=== PATIENT | female | born 1950 | race Caucasian/White ===

== ENCOUNTER 2025-04-02 15:22 | Emergency (ER) | payer MEDICARE, BC ==
[~2025-04-02] VITALS: Ht 149.9 cm; Wt 47.2 kg
[2025-04-02 15:56] LABS: BASOPHILS % (AUTO) 0.6 % (0-1); EOSINOPHILS % (AUTO) 0.5 % (0-6); HEMATOCRIT 40.4 % (35.0-45.0); HEMOGLOBIN 13.8 g/dl (12.0-16.0); LYMPHOCYTES # (AUTO) 1.2 X10'3 (1.1-4.8); MEAN CORPUSCULAR HEMOGLOBIN 29.5 PG (27.0-31.0); MEAN CORPUSCULAR HGB CONC 34.1 g/dL (33.0-36.5); MEAN CORPUSCULAR VOLUME 86.3 FL (78-98); MEAN PLATELET VOLUME 7.9 FL (7.4-10.4); MONOCYTES # (AUTO) 0.4 X10'3 (0-0.9); NEUTROPHILS # (AUTO) 4.7 X10'3 (1.8-7.7); NEUTROPHILS % (AUTO) 73.9 % (42-75); PLATELET COUNT 266 X10'3 (140-440); RED BLOOD COUNT 4.68 X10'6 (4.20-5.60); RED CELL DISTRIBUTION WIDTH 13.4 % (11.5-14.5); WHITE BLOOD COUNT 6.3 X10'3 (4.5-11.0)
[2025-04-02 16:06] LABS: ANION GAP 8 (8-16); BLOOD UREA NITROGEN 15 MG/DL (7-18); BUN/CREATININE RATIO 20.3 (10.0-20.0); CALCIUM 9.2 MG/DL (8.5-10.1); CHLORIDE 103 MMOL/L (99-107); CREATININE 0.74 MG/DL (0.40-0.90); GLUCOSE 134 MG/DL (70-104); POTASSIUM 4.3 MMOL/L (3.5-5.1); SODIUM 137 MMOL/L (135-145); TOTAL CARBON DIOXIDE 26.5 MMOL/L (24-32); eCRCL 47 ML/MIN; eGFR 77 ML/MIN
--- NOTE | 2025-04-02 16:10 | ELECTROCARDIOGRAPH REPORT ---
[facility] Test Date: 2025-04-02 Test Time: 16:08:19 Pat Name: JC CROOKS Department: EMERGENCY ROOM Room: Gender: F Administration Internship: YASMINE : 1950 Requested By: JESS GUEVARA Order Number: [id number] Reading MD: Dr. Alpesh Soto Measurements Intervals Bolt Rate: 66 P: 0 AR: 0 QRS: 77 QRSD: 98 T: 62 QT: 389 QTc: 408 Interpretive Statements Pacemaker spikes or artifacts Atrial flutter Electronically Signed On 04-04-2025 11:02:[address] Alpesh Soto Please click the below link to view image of tracing.
[2025-04-02 16:11] LABS: APTT 30 SECONDS (22-32); INR 1.1 INR; PROTHROMBIN TIME 11.3 SECONDS (9.0-12.0)
--- NOTE | 2025-04-02 16:23 | RADIOLOGY REPORT ---
EXAM: CT CT STROKE ALERT HISTORY: Stroke Alert COMPARISON: None TECHNIQUE: Axial images were obtained and reformatted in coronal and sagittal planes. All CT scans at this medical facility are performed using dose modulation techniques as appropriate t o a performed exam including the following: Automated exposure control was utilized; adjustment of th e MA and/or KV according to patient size; and use of iterative reconstruction technique. CT Dose: CTDI volume is 51 mGy. Dose-length product is 879 mGy*cm FINDINGS: Supratentorial Region: No evidence for large acute territorial ischemia. No intracranial hemorrhage is noted. Posterior Fossa: No acute abnormality. Brainstem: Unremarkable. Sellar/Suprasellar Region: Unremarkable. Ventricles, Cisterns, Sulci: Age-appropriate. Orbits: Unremarkable. Paranasal Sinuses: Unremarkable. Mastoid Air Cells: Unremarkable. Vasculature: Intracranial arterial calcified plaque formation noted. Bones/Soft Tissues: No acute abnormality. Other: None. IMPRESSION: 1. No acute intracranial process. Critical Result: Stroke Alert Findings discussed with Dr. Claros, at 04/02/2025 04:20 PM, and acknowledged receipt and understandin g of the findings. ..
--- NOTE | 2025-04-02 16:25 | RADIOLOGY REPORT ---
CHEST RADIOGRAPH Indication: Stroke Alert Technique: Single frontal view of the chest was obtained COMPARISON: None FINDINGS: Lines and Tubes: None Lungs: Clear Pleura: No effusion. No pneumothorax. Cardiomediastinal contours: Unremarkable Bones: Unremarkable IMPRESSION: No acute disease.
--- NOTE | 2025-04-02 16:57 | Physician Documentation ---
History of Present Illness ~ Chief Complaint: Stroke Alert Stated Complaint: LEFT SIDED WEAKNES Time Seen by MD: 16:01 Primary Medical Doctor: elsa shaikh [facility] [place] Source: patient, family Mode of Arrival: POV HPI 74-year-old female history of Parkinson's, remote CVA, hypertension presenting for weakness. She reports that over the last few weeks she has had decreased mobility to the point where she was prior walking unassisted now only able to walk with her 's help. She reports that over the last few weeks she has also had decreased sensation/numbness in her left lower leg and then today she felt numb in her right face. She felt like she had difficulty getting her words out. Her who was there did not notice any abnormalities in her speech or face Medication Reconciliation Allergies: Coded Allergies: Sulfa (Sulfonamide Antibiotics) (Verified Allergy, Unknown, 04/02/25) Scheduled Aspirin (Aspirin), 1 TAB PO DAILY Clopidogrel Bisulfate (Plavix), 1 TAB PO DAILY Review of Systems All Other Systems at this time: Reviewed and Negative Respiratory: Denies: cough, shortness of breath Cardiovascular: Denies: chest pain Gastrointestinal: Denies: abdomen distended, abdominal pain, nausea, vomiting Genitourinary: Denies: dysuria Neurological: Reports: speech problem, tingling, left sided numbness; Denies: headache, dizziness, fainting Physical Exam Vital Signs: Heart Rate: 71, Respiratory Rate: 15, BP: 179/77, Pulse Oximetry: 97, Weight: 47.200 Oxygen Flow Rate: 0 General Appearance Tremulous No JVD Moist mucous membranes Pulmonary clear to auscultation bilaterally Cardiac no murmur Abdomen is soft nontender Lower extremity no edema Awake alert oriented Awake alert oriented Cranial nerves 2-12 intact Visual salguero full to confrontation Pupils PERRLA Extraocular motions intact Normal speech no aphasia no dysarthria Normal [id number] no dysmetria 5/5 bilateral upper and lower extremity strength No pronator drift Diminished left facial sensation, intact right facial sensation, no facial droop Progress Progress Note Independently interpreted labs show no acute abnormality Consulted Neurology they recommended admission for stroke evaluation 6:[address] Poole- nurse informed me that patient would like to leave and does not want to stay for admission. I went to bedside and had long discussion with the patient and her . I expressed my concern given her symptoms and age that she may have had a stroke and that she should stay for our further evaluation. The patient feels that she does not need to stay in the hospital. She is agreeable to stay for the CT angiogram that neurology recommended. I asked that she at least wait till she gets results and consider staying. She will think about it. Patient signed out to night physician Dr. Lucas for follow up CT and follow up discussion on disposition. Results/Orders Reviewed/noted all lab results: Yes Results/Orders Orders - KIRSTEN POOLE MD [place] Prov.Neuro Consult (04/02/25 17:06) Page Hospitalist (04/02/25 17:38) Fill Out Med Reconciliation (04/02/25 17:38) Cta Neck/Head (04/02/25 18:49) Completed Orders - KIRSTEN POOLE MD Cta Neck/Head (04/02/25 18:49) Iohexol 350mg/Ml 100ml (Omnipaque 350mg/ (04/02/25 18:33) Vital Signs 04/02/25 04/02/25 04/02/25 04/02/25 15:33 16:23 16:30 17:30 Pulse 71 73 70 Resp 15 16 16 B/P (MAP) 179/77 172/72 (105) 167/60 (95) Pulse Ox 97 98 97 O2 Flow Rate 0 0 0 04/02/25 04/02/25 04/02/25 18:00 18:25 19:00 Pulse 67 89 Resp 14 15 B/P (MAP) 168/68 (101) 135/93 (107) Pulse Ox 97 99 99 O2 Delivery Room Air* O2 Flow Rate 0 0 FiO2 21 Laboratory Tests Test 04/02/25 15:47 White Blood Count 6.3 Red Blood Count 4.68 Hemoglobin 13.8 Hematocrit 40.4 Mean Corpuscular Volume 86.3 Mean Corpuscular Hemoglobin 29.5 Mean Corpuscular Hemoglobin Concent 34.1 Red Cell Distribution Width 13.4 Platelet Count 266 Mean Platelet Volume 7.9 Neutrophils (%) (Auto) 73.9 Lymphocytes (%) (Auto) 19.0 L Monocytes (%) (Auto) 6.0 Eosinophils (%) (Auto) 0.5 Basophils (%) (Auto) 0.6 Neutrophils # (Auto) 4.7 Lymphocytes # (Auto) 1.2 Monocytes # (Auto) 0.4 Eosinophils # (Auto) 0.0 Basophils # (Auto) 0.0 CBC Comment Prothrombin Time 11.3 INR International Normalized Ratio 1.1 Activated Partial Thromboplast Time 30 Coagulation Comments Sodium Level 137 Potassium Level 4.3 Chloride Level 103 Carbon Dioxide Level 26.5 Anion Gap 8 Blood Urea Nitrogen 15 Creatinine 0.74 Estimated GFR/1.73 m2 77 BUN/Creatinine Ratio 20.3 H Glucose Level 134 H Hemoglobin A1c 5.8 Calcium Level 9.2 Magnesium Level 2.1 Albumin 4.0 Chemistry Comments EKG/XRAY/CT/US/VASC/MRI CT : Impression Independent interpretation of CT head shows no intracranial hemorrhage or stroke Medical Decision Making Findings CARE THE PATIENT WAS TRANSFERRED TO MI FROM DR. POOLE AT APPROXIMATELY 6:50 P.M.. Patient's CTA of the head and neck is negative for any LVO. Patient has some posterior circulation atherosclerotic disease. Neurology evaluation was reviewed. We will follow his recommendations. Patient is wanting to go home. She is refusing admission. Test results and risks were discussed with the patient. Patient will be started on Plavix and baby aspirin. First dose will be given here and prescriptions will be written for 21 days. Patient states that she is going to follow up with her neurologist. Patient sees a neurologist for her Parkinson's. Patient will be signed out against medical advice. Differential Dx:Considerations: Include: Mary's [place], CVA, Encephalopathy Departure Time of Disposition: 19:44 Disposition: 07 LEFT AGAINST MEDICAL ADVICE Impression: Primary Impression: Cerebrovascular accident Qualified Codes: I63.9 - Cerebral infarction, unspecified Condition: Stable Discharge Instructions: Stroke Prevention, Kltj-[id number], Ischemic Stroke Additional Instructions: NEUROLOGIST RECOMMEND SHE TAKE PLAVIX 75 MG A DAY FOR 21 DAYS AND CHEWABLE BABY ASPIRIN 81 MG A DAY FOR 21 DAYS. CALL YOUR NEUROLOGIST TOMORROW FOR FOLLOW-UP. RETURN TO THE ER IF YOU HAVE ANY RECURRENT OR WORSENING SYMPTOMS. Prescriptions Aspirin (Aspirin) 81 Mg Tab.chew 1 TAB PO DAILY for 30 Days, #30 TAB Prov: KATIE ADRIAN MD 04/02/25 Clopidogrel Bisulfate (Plavix) 75 Mg Tablet 1 TAB PO DAILY for 30 Days, #21 TAB 0 Refills Prov: KATIE ADRIAN MD 04/02/25 Education Educated: Patient, Family Educated regarding: diagnosis, treatment, need for follow up Signature Scribe Signature: NO SCRIBE Attestation: NO SCRIBE KIRSTEN POOLE MD April 02, 2025 16:57 KATIE ADRIAN MD April 02, 2025 19:48
[2025-04-02] MEDS ORDERED: iohexol 350MG/ML 100ml bottle IV ONE (18:33)
--- NOTE | 2025-04-02 18:55 | [facility] CONSULT REPORT ---
[facility] Procedure Note [facility] Procedure Note Consult [facility] Note # Demographics Consult Type: Acute Stroke Level 2 (4.5-24 hrs) Patient Location: Emergency Room First Name: blanquita Last Name: wil Age: 74 Gender: Female Facility: [facility] Time of Initial Page (): 04/02/2025 18:04 Time of Return Call (): 04/02/2025 18:10 # HPI History: Several days of word finding difficulty and left leg and arm numbness and face also. Last Known Normal: >48hrs # Scores Time of exam and NIHSS (): 04/02/2025 18:36 Level of Consciousness 1a: [0] = Alert; keenly responsive LOC Questions 1b: [0] = Answers both questions correctly LOC Commands 1c: [0] = Performs both tasks correctly Best Gaze 2: [0] = Normal Visual 3: [0] = No visual loss Facial Palsy 4: [1] = Minor paralysis Motor Arm Left 5a: [0] = No drift Motor Arm Right 5b: [0] = No drift Motor Leg Left 6a: [0] = No drift Motor Leg Right 6b: [0] = No drift Limb Ataxia 7: [0] = Absent Sensory 8: [1] = Kaao-sx-afvgepkf sensory loss Best Language 9: [0] = No aphasia Dysarthria 10: [0] = Normal Extinction and Inattention 11: [0] = No abnormality NIHSS Total: 2 # Exam Vitals: vital signs reviewed # PMH-FH-SH Past Medical History: pd # Data Head CT: - no bleed - per radiologist read - preliminarily reviewed by me, please refer to radiology read for official reading # Assessment Impression: - Ischemic Stroke (Subacute) vs mimic # Plan Thrombolytic/Intervention: NOT IV Thrombolysis or IA Intervention candidate Thrombolytic Exclusion: > 4.5 hours Intraarterial Exclusion: - no large vessel occlusion (LVO) Target Blood Pressure: SBP < 180 Labs: - hemoglobin A1c - lipid panel Imaging: (urgency: STAT): - CT Angiogram Head and CT Angiogram Neck AND call back with results if abnormal Imaging: (urgency: routine): - MRI Brain without contrast Diagnostic Test: - echo without bubble study Therapy/Evaluation: - NPO until swallow evaluation - PT/OT evaluation - speech/swallow consultation Medication: - start statin with goal of LDL < 70 - Plavix 300 mg PO x1 now, then 75 mg daily x 21 days + asa 81mg x 21 days, followed by monotherapy thereafter Other: - If patient has any neurological deterioration please call me back immediately - I have discussed my recommendations with the referring provider - telemetry monitoring - LDL < 70 - would not pursue stroke work-up if MRI is negative Disposition: admit # Logistics Attestation of consult completion: The patient is located at: [facility]. Facility staff participated in the visit. I performed this t elemedicine visit from my offsite office utilizing interactive 2 way audio and visual telecommunication technology. Total time spent in telemedicine encounter: I spent 21 minutes reviewing clinical data and/or imaging, obtaining history, examining the patient, communicating with the onsite care team, and in preparation of this report. Critical Care time: 21 minutes of this encounter were critical care time. Due to a high probability of clinically significant, life-threatening neurologic deterioration, the patient required my highest level of preparedness to intervene emergently. I spent this critical care time managing the patient in conjunction with on-site providers who requested my consultation. In addition to the above, this critical care time included recommendation and review of studies, including imaging; arranging an urgent treatment and management plan with on-site providers; evaluation of patient's response to treatment; and documentation. This critical care time was performed to assess and manage the high probability of imminent, life-threatening deterioration that could result in neurologic catastrophe. # Demographics First Name: blanquita Last Name: wil Facility: [facility] Electronically signed at 04/02/2025 18:55 ([place] Time) by Sukumar Morris MD Neuro Consult Order placed for: Yes LOVE MORRIS MD April 02, 2025 18:55
[2025-04-02 19:00] VITALS: BP 135/93; PULSE 89; RESP 15; O2SAT 99
--- NOTE | 2025-04-02 19:31 | RADIOLOGY REPORT ---
INDICATION: cva COMPARISON: None TECHNIQUE: CTA head with intravenous contrast. CTA neck with intravenous contrast. 3D image postp rocessing was performed on a dedicated workstation and images were used for interpretation and report ing. Radiation Dose Information: CT Dose: CTDI volume is mGy. Dose-length product is mGy*cm FINDINGS: CTA head: Calcified plaque in cavernous and paraclinoid ICAs greater on the right side with moderate narrowing in the right paraclinoid ICA and mild narrowing on the left side. Mild narrowing in proximal right M1 segment; right MCA otherwise appears unremarkable. Left M1 segment appears unremarkable. Mild-to-mod erate narrowing in left M2 segments. No significant abnormality demonstrated in the ACAs. Atheroscle rotic plaque in the intracranial vertebral arteries with tyfubhcq-tj-rymyqg stenosis in the dominant intracranial left vertebral artery and mild narrowing in the nondominant intracranial right vertebral artery. Moderate narrowing in the proximal basilar artery and mild narrowing in distal basilar arter y. Mild irregularities and narrowing in bilateral channel lip stiffener insoles. Intracranial venous structures are grossly un remarkable. CTA neck: Mild plaque in the aortic arch without stenosis at the origins of the great vessels. Proximal great v essels appear unremarkable. Mild plaque at right carotid bifurcation without stenosis. Otherwise unremarkable. Minimal plaque at left carotid bifurcation without stenosis. Otherwise unremarkable. Cervical segments of left and right vertebral arteries are normal. Left dominant. Limited visualized lung apices are clear. Soft tissues and osseous structures are unremarkable. IMPRESSION: No evidence of large vessel occlusion. Intracranial atherosclerotic changes as described above, great er in the posterior circulation. No evidence of hemodynamically significant cervical carotid or vertebral artery stenosis or dissectio n. All CT scans at this medical facility are performed using dose modulation techniques as appropriate t o a performed exam including the following: Automated exposure control was utilized; adjustment of th e MA and/or KV according to patient size; and use of iterative reconstruction technique.
[2025-04-02] MEDS ORDERED: magnesium hydroxide 30ml (MOM) UD suspension PO PRN (19:35)
[2025-04-02] MEDS ORDERED: clopidogrel 300mg tablet PO ONE ×2 (19:35→19:50)
[2025-04-02] MEDS ORDERED: mag hydrox/Alum hydrox/simeth 30ml oral suspension PO PRN (19:35)
[2025-04-02] MEDS ORDERED: morphine 2 MG/ML inj. syringe IV PRN ×2 (19:35)
[2025-04-02] MEDS ORDERED: magnesium Cl slow-release 64mg tablet PO PRN (19:35)
[2025-04-02] MEDS ORDERED: magnesium sulf-water 4G/100mL 100 ML IV PRN (19:35)
[2025-04-02] MEDS ORDERED: ondansetron/PF 4mg/2ml inj IV PRN (19:35)
[2025-04-02] MEDS ORDERED: potassium Cl 40MEQ/1/2NS 520ml 520 ML IV PRN (19:35)
[2025-04-02] MEDS ORDERED: aspirin 81mg, enteric-coated 1 TAB TABLET.DR PO ONE (19:35)
[2025-04-02] MEDS ORDERED: magnesium sulf-water 2g/50mL 50 ML IV PRN (19:35)
[2025-04-02] MEDS ORDERED: potassium Cl 20 mEq SR tablet PO PRN ×2 (19:35)
[2025-04-02] MEDS ORDERED: acetaminophen 325mg tablet PO PRN (19:35)
[2025-04-02] MEDS ORDERED: ASPI-280 PO (19:47)
[2025-04-02] MEDS ORDERED: CLOP-32 PO (19:47)
[2025-04-02] MEDS ORDERED: K and/or MAG REPLACEMENT MC SCH (20:00)
[2025-04-02] MEDS ORDERED: docusate sod 100mg capsule PO SCH (20:00)
[2025-04-02] MEDS: aspirin 81mg tab.chew PO ONE (20:04)
[2025-04-02 20:12] LABS: HEMOGLOBIN A1C 5.8 % (4.5-6.2)
[2025-04-02 20:15] LABS: MAGNESIUM 2.1 MG/DL (1.5-2.4)
[2025-04-03] MEDS ORDERED: clopidogrel 75mg tablet PO SCH (08:00)
[2025-04-03] MEDS ORDERED: enoxaparin 40mg/0.4ml syringe SUBCUT SCH (08:00)
[2025-04-03] MEDS ORDERED: aspirin 81mg, enteric-coated 1 TAB TABLET.DR PO SCH (08:00)
== END 2025-04-02 20:12 | disposition left against medical advice (07) ==
LOC: ER 15:23
DX: I63.9 Cerebral infarction, unspecified (principal); I10 Essential (primary) hypertension; G20.A1 Parkinson's disease without dyskinesia, without mention of fluctuations; Z86.73 Personal history of transient ischemic attack (TIA), and cerebral infarction without residual deficits; Z88.2 Allergy status to sulfonamides; Z79.82 Long term (current) use of aspirin
CPT/HCPCS: 36415; 70450; 70496; 70498; 71045; 80048; 83036; 83735; 85025; 85610; 85730; 93005; 99285; Q9967